=== PATIENT | male | born 1985 | race Caucasian/White ===

== ENCOUNTER 2019-11-20 18:28 | Emergency (ER) | payer BC, OTHER ==
[2019-11-20 18:34] VITALS: RESP 18
[2019-11-20] MEDS ORDERED: KETOROLAC 30 MG/ML 1 ML VIAL IM STA (18:43)
[2019-11-20 19:14] LABS: Appearance,Urine Clear (Clear); Bilirubin,Urine Negative (Negative); Blood,Urine Negative (Negative); Color,Urine Yellow; Glucose,Urine (UA) Negative (Negative); Ketones,Urine Trace (Negative); Leukocyte Esterase,Urine Negative (Negative); Nitrite,Urine Negative (Negative); PH, Urine 6.5 (5.0-8.0); Protein,Urine Negative (Negative); Specific Gravity,Urine 1.014 (1.001-1.035); Urobilinogen,Urine <2.0 mg/dL (<2.0)
--- NOTE | 2019-11-20 19:43 | ED ---
General Adult HPI - General Chief complaint: Urogenital Stated complaint: sent by [facility] [place] for US Time Seen by Provider: 11/20/19 18:35 Source: patient Mode of arrival: ambulatory Limitations: no limitations - History of Present Illness Initial comments: 34-year-old male patient presents to the emergency department today as a transfer from [facility] for further evaluation of left testicular pain. Patient states a few hours ago he started to have pain in the testicle which gradually worsened. Patient states his max pain is around an 8-9 out of 10 on the pain scale. States he is currently a 6. Patient denies any swelling. Denies any penile drainage or discharge. Denies any dysuria, hematuria, urinary frequency, urinary urgency. Denies any known injury to the testicle. Patient states he is having some vague left lower abdominal pain and low back pain. States he did take ibuprofen around 1 PM but it didn't seem to help. Denies any history of similar symptoms. He has had vasectomy in the past. Patient denies any recent rash, cough, shortness of breath, chest pain, nausea, vomiting, diarrhea, constipation, numbness, tingling, dizziness, weakness, headache, visual changes, or any other complaints. - Related Data Allergies Allergy/AdvReac Type Severity Reaction Status Date / Time No Known Allergies Allergy Verified 11/20/19 18:33 Review of Systems ROS Statement: Those systems with pertinent positive or pertinent negative responses have been documented in the HPI. ROS Other: All systems not noted in ROS Statement are negative. Past Medical History Past Medical History: No Reported History History of Any Multi-Drug Resistant Organisms: None Reported Past Surgical History: No Surgical Hx Reported Past Psychological History: No Psychological Hx Reported Smoking Status: Never smoker Past Alcohol Use History: None Reported Past Drug Use History: None Reported General Exam Limitations: no limitations General appearance: alert, in no apparent distress, other (Physical well- developed, well-nourished adult male patient in no acute distress. Vital signs upon presentation are temperature 98.3F, pulse 64, respirations 18, blood pressure 136/81, pulse ox 100% on room air) Respiratory exam: Present: normal lung sounds bilaterally. Absent: respiratory distress, wheezes, rales, rhonchi, stridor Cardiovascular Exam: Present: regular rate, normal rhythm, normal heart sounds. Absent: systolic murmur, diastolic murmur, rubs, gallop, clicks GI/Abdominal exam: Present: soft, normal bowel sounds. Absent: distended, tenderness, guarding, rebound, rigid exam: Present: normal inspection, testicular tenderness (left), other (Positive cremasteric reflex. There is not sign of henia. ). Absent: urethral discharge, scrotal swelling Neurological exam: Present: alert, oriented X3, CN II-XII intact Psychiatric exam: Present: normal affect, normal mood Skin exam: Present: warm, dry, intact, normal color. Absent: rash Course Vital Signs 11/20/19 11/20/19 18:30 21:19 Temperature 98.3 F 97.9 F Pulse Rate 64 60 Respiratory 18 18 Rate Blood Pressure 136/81 118/87 O2 Sat by Pulse 100 96 Oximetry Medical Decision Making - Medical Decision Making 34-year-old male patient presents to the emergency department today for evaluation of left testicular pain. Physical examination reveals left testicular tenderness and inguinal tenderness with no evidence of hernia. Urinalysis is negative. This was sent for culture and gonorrhea and chlamydia. Ultrasound was obtained and showed small bilateral hydrocele and a small calcification of doubtful significance. I did discuss findings and results with the patient. He is instructed to rest and take anti-inflammatory pain medication while awaiting culture results was instructed to follow-up with urologist for further evaluation as soon as possible. Return parameters were discussed in detail. He verbalizes understanding and agrees with this plan. - Lab Data Lab Results 11/20/19 Range/Units 18:57 Urine Color Yellow Urine Appearance Clear (Clear) Urine pH 6.5 (5.0-8.0) Ur Specific [place] 1.014 (1.001-1.035) Urine Protein Negative (Negative) Urine Glucose (UA) Negative (Negative) Urine Ketones Trace H (Negative) Urine Blood Negative (Negative) Urine Nitrite Negative (Negative) Urine Bilirubin Negative (Negative) Urine Urobilinogen <2.0 (<2.0) mg/dL Ur Leukocyte Esterase Negative (Negative) - Radiology Data Radiology results: report reviewed, image reviewed Ultrasound of the scrotum with Doppler was obtained. Report was reviewed in its entirety. Impression by Dr. Serrato shows no testicular torsion or mass. Small hydroceles. There is small calcification adjacent to the left testicle doubtful significance. Disposition Clinical Impression: Testicular pain, left, Bilateral hydrocele Disposition: HOME SELF-CARE Condition: Good Instructions (If sedation given, give patient instructions): Hydrocele (ED), Testicle Pain (ED) Additional Instructions: Rest. Take medication for pain as directed. Follow-up with the primary care physician for recheck in 1-2 days. Follow-up with urology as soon as possible. Return to the emergency department immediately for any new, worsening, or concerning symptoms. Is patient prescribed a controlled substance at d/c from ED?: No Referrals: Luke Mcgee MD [Primary Care Provider] - 1-2 days Lisandro Reyes MD [STAFF PHYSICIAN] - 1-2 days Time of Disposition: 21:08
--- NOTE | 2019-11-20 20:29 | US ---
EXAMINATION TYPE: US scrotum with doppler. Grayscale and color Doppler Duplex imaging performed of t swetha scrotum. DATE OF EXAM: 11/20/2019 COMPARISON: NONE CLINICAL HISTORY: Left testicular pain. Left testicular pain and swelling x 1 day. Hx vasectomy 10 mo nths ago. EXAM MEASUREMENTS: TESTICLES: Right Testicle: 4.5 x 3.1 x 2.6 cm Left Testicle: 4.3 x 3.1 x 2.6 cm EPIDIDYMIS HEAD: Right Epididymis: 1.7 x 1.6 x 0.8 cm. Complex area seen: 0.3 x 0.3 x 0.3 cm. Left Epididymis: 1.8 x 1.6 x 0.9 cm. Doppler performed to assess for testicular vascularity; bilateral color flow and waveforms are seen. Presence of hydroceles: Right: 2.1 x 1.7 x 0.8 cm. Left: 2.3 x 1.9 x 1.1 cm. Presence of varicoceles: Vessels on left measure up to 2.4 mm. There appears to be a hyperechoic area with posterior shadowing adjacent to the left testicle mediall y: 0.8 x 0.7 x 0.3 cm. IMPRESSION: No testicular torsion or mass. Small hydroceles. There is small calcification adjacent to the left te sticle doubtful significance.
[2019-11-20] MEDS ORDERED: ACET/COD 300 MG/30 MG STARTER PACK 6 TAB BTL PO STA (21:09)
[2019-11-20 21:20] VITALS: BP 118/87; PULSE 60; TEMP 97.9
[2019-11-21 14:34] LABS: C. trachomatis,PCR Negative (Neg,Equiv); Chlamydia trachomatis Source Urine; N. gonorrhoeae,PCR Negative (Neg,Equiv); Neisseria Source Urine
== END 2019-11-20 21:20 | disposition home or self-care (01) ==
LOC: EC 18:28
DX: N50.812 Left testicular pain (principal); N43.3 Hydrocele, unspecified
CPT/HCPCS: 81003; 87491; 87591; 93975; 76870; 99284; J1885

== ENCOUNTER 2020-01-28 12:10 | Emergency (ER) | payer BC ==
[2020-01-28 12:51] VITALS: BP 120/80; PULSE 57; RESP 18; TEMP 98.3
[2020-01-28] MEDS ORDERED: SODIUM CHLORIDE 0.9% 1,000 ML IV STA (13:45)
[2020-01-28] MEDS ORDERED: KETOROLAC 30 MG/ML 1 ML VIAL IVP STA (13:45)
[2020-01-28] MEDS ORDERED: ONDANSETRON ODT 8 MG TAB.RAPDIS PO STA (13:45)
--- NOTE | 2020-01-28 13:46 | ED ---
Abdominal Pain HPI - General Chief Complaint: Abdominal Pain Stated Complaint: abdominal pain Time Seen by Provider: 01/28/20 13:35 Source: patient Mode of arrival: ambulatory Limitations: no limitations - History of Present Illness Initial Comments: Patient is a 34-year-old male presenting to the emergency department with a chief complaint of abdominal pain. States the incident occurred about 2 weeks ago when his son jumped on his stomach, particularly on the left lower quadrant region is gradual develop increased pain. States the pain is exacerbated with movement. States it feels like his left lower quadrant region is swollen. Denies any nausea or vomiting does report decreased appetite. Denies any penile or testicular pain or swelling. Denies taking medication to alleviate the symptoms. Denies hematuria, hematochezia or melena. Denies any urinary symptoms.no history of kidney stones or abdominal surgeries. - Related Data Allergies Allergy/AdvReac Type Severity Reaction Status Date / Time No Known Allergies Allergy Verified 01/28/20 12:51 Review of Systems ROS Statement: Those systems with pertinent positive or pertinent negative responses have been documented in the HPI. ROS Other: All systems not noted in ROS Statement are negative. Past Medical History Past Medical History: No Reported History History of Any Multi-Drug Resistant Organisms: None Reported Past Surgical History: No Surgical Hx Reported Past Psychological History: No Psychological Hx Reported Smoking Status: Never smoker Past Alcohol Use History: None Reported Past Drug Use History: None Reported General Exam Limitations: no limitations General appearance: alert, in no apparent distress Head exam: Present: atraumatic, normocephalic, normal inspection Eye exam: Present: normal appearance, PERRL, EOMI Pupils: Present: normal accommodation ENT exam: Present: normal exam, normal oropharynx, mucous membranes moist Neck exam: Present: normal inspection, full ROM Respiratory exam: Present: normal lung sounds bilaterally Cardiovascular Exam: Present: regular rate, normal rhythm, normal heart sounds GI/Abdominal exam: Present: soft, tenderness (Left lower quadrant, left flank.), normal bowel sounds. Absent: distended, guarding, rebound, rigid Extremities exam: Present: normal inspection, full ROM Back exam: Present: normal inspection, full ROM Neurological exam: Present: alert, oriented X3 Psychiatric exam: Present: normal affect, normal mood Skin exam: Present: warm, dry, intact, normal color Course Vital Signs 01/28/20 12:50 Temperature 98.3 F Pulse Rate 57 L Respiratory 18 Rate Blood Pressure 120/80 O2 Sat by Pulse 99 Oximetry Medical Decision Making - Medical Decision Making Patient is 34-year-old male presenting to the emergency department with a chief complaint of abdominal pain on exam patient does have left lower quadrant left flank pain. With some left CVA tenderness. His son did jump on his stomach about 2 weeks ago and now has developed increased pain in the region. CBC and CMP are unremarkable. UA shows small ketones. Patient does report decreased fluid and water intake. Patient was given fluids and antiemetics in the ED. CT of abdomen and pelvis reveals partially sacralized left L5 segment this asymmetry may cause chronic left lower quadrant and pelvic pain. This could result for the patient's increased discomfort in region. Patient advised alternate between Tylenol and Motrin for pain control. He is advised to rest. He was advised to follow with primary care. Return parameters were thoroughly discussed with patient is understanding and agreeable. Case discussed with physician. - Lab Data Result diagrams: 01/28/20 14:17 01/28/20 14:17 Lab Results 01/28/20 01/28/20 01/28/20 Range/Units 14:04 14:17 14:17 WBC 5.3 (3.8-10.6) k/uL RBC 5.19 (4.30-5.90) m/uL Hgb 15.8 (13.0-17.5) gm/dL Hct 48.6 (39.0-53.0) % MCV 93.7 (80.0-100.0) fL MCH 30.5 (25.0-35.0) pg MCHC 32.6 (31.0-37.0) g/dL RDW 12.1 (11.5-15.5) % Plt Count 215 (150-450) k/uL Neutrophils % 65 % Lymphocytes % 23 % Monocytes % 7 % Eosinophils % 2 % Basophils % 1 % Neutrophils # 3.4 (1.3-7.7) k/uL Lymphocytes # 1.2 (1.0-4.8) k/uL Monocytes # 0.4 (0-1.0) k/uL Eosinophils # 0.1 (0-0.7) k/uL Basophils # 0.0 (0-0.2) k/uL Sodium 137 (137-145) mmol/L Potassium 4.6 (3.5-5.1) mmol/L Chloride 104 (98-107) mmol/L Carbon Dioxide 25 (22-30) mmol/L Anion Gap 8 mmol/L BUN 10 (9-20) mg/dL Creatinine 0.83 (0.66-1.25) mg/dL Est GFR (CKD-EPI)AfAm >90 (>60 ml/min/1.73 sqM) Est GFR (CKD-EPI)NonAf >90 (>60 ml/min/1.73 sqM) Glucose 89 (74-99) mg/dL Calcium 9.5 (8.4-10.2) mg/dL Total Bilirubin 1.0 (0.2-1.3) mg/dL AST 58 (17-59) U/L ALT 58 H (4-49) U/L Alkaline Phosphatase 48 (38-126) U/L Total Protein 7.3 (6.3-8.2) g/dL Albumin 4.6 (3.5-5.0) g/dL Lipase 107 (23-300) U/L Urine Color Yellow Urine Appearance Clear (Clear) Urine pH 7.0 (5.0-8.0) Ur Specific [place] 1.010 (1.001-1.035) Urine Protein Negative (Negative) Urine Glucose (UA) Negative (Negative) Urine Ketones 1+ H (Negative) Urine Blood Negative (Negative) Urine Nitrite Negative (Negative) Urine Bilirubin Negative (Negative) Urine Urobilinogen <2.0 (<2.0) mg/dL Ur Leukocyte Esterase Negative (Negative) Disposition Clinical Impression: Abdominal wall pain Disposition: HOME SELF-CARE Condition: Stable Instructions (If sedation given, give patient instructions): Abdominal Pain (ED) Additional Instructions: Alternate between Tylenol and Motrin for pain control. Return to emergency department if symptoms worsen. Is patient prescribed a controlled substance at d/c from ED?: No Referrals: Luke Mcgee MD [Primary Care Provider] - 1-2 days Time of Disposition: 15:13
[2020-01-28] MEDS ORDERED: ONDANSETRON 4 MG/2 ML VIAL IVP STA (14:01)
[2020-01-28 14:39] LABS: Basophils % (A) 1 %; Eosinophils # (A) 0.1 k/uL (0-0.7); Eosinophils % (A) 2 %; HCT 48.6 % (39.0-53.0); HGB 15.8 gm/dL (13.0-17.5); Lymphocytes # (A) 1.2 k/uL (1.0-4.8); Lymphocytes % (A) 23 %; MCH 30.5 pg (25.0-35.0); MCHC 32.6 g/dL (31.0-37.0); MCV 93.7 fL (80.0-100.0); Mean Platelet Volume 6.9; Monocytes # (A) 0.4 k/uL (0-1.0); Monocytes % (A) 7 %; Neutrophils # (A) 3.4 k/uL (1.3-7.7); Neutrophils % (A) 65 %; Platelet Count 215 k/uL (150-450); RBC 5.19 m/uL (4.30-5.90); RDW 12.1 % (11.5-15.5); WBC 5.3 k/uL (3.8-10.6)
[2020-01-28 14:44] LABS: Appearance,Urine Clear (Clear); Bilirubin,Urine Negative (Negative); Blood,Urine Negative (Negative); Color,Urine Yellow; Glucose,Urine (UA) Negative (Negative); Ketones,Urine 1+ (Negative); Leukocyte Esterase,Urine Negative (Negative); Nitrite,Urine Negative (Negative); Protein,Urine Negative (Negative); Urobilinogen,Urine <2.0 mg/dL (<2.0)
--- NOTE | 2020-01-28 14:53 | CT ---
EXAMINATION TYPE: CT abdomen pelvis w con DATE OF EXAM: 01/28/2020 COMPARISON: None. HISTORY: Left lower quadrant pain. CT DLP: 1051.2 mGycm, Automated Exposure Control for Dose Reduction was Utilized. CONTRAST: CT scan of the abdomen and pelvis is performed without oral by with IV Contrast, patient injected wit h 100 mL of Isovue 300. FINDINGS: LUNG BASES: No significant abnormality is appreciated. LIVER/GB: No significant abnormality is appreciated. PANCREAS: No significant abnormality is seen. SPLEEN: No significant abnormality is seen. ADRENALS: No significant abnormality is seen. KIDNEYS: Symmetric right medullary uptake and excretion without concerning solid or cystic renal mass or hydronephrosis seen bilaterally. [id number] concentric wall thickening in the poorly disten ded bladder, correlate clinically to exclude acute cystitis. BOWEL: Suboptimal evaluation without enteric contrast. Stomach shows less than optimal distention. No suspicious small or large bowel dilatation. Normal-appearing appendix inferiorly from cecum right up per pelvis seen best sagittal image 40. PROSTATE/SEMINAL VESICLES: No gross abnormality seen. LYMPH NODES: No greater than 1cm abdominal or pelvic lymph nodes are appreciated. OSSEOUS STRUCTURES: Partially sacralized left L5 segment. Moderate disc space narrowing lumbosacral j unction. OTHER: No significant additional abnormality is seen. IMPRESSION: Partially sacralized left L5 segment, this asymmetric assimilation may cause chronic left lower quadrant and pelvic pain. Possible acute cystitis, correlate clinically. No acute finding othe rwise evident.
[2020-01-28 15:00] LABS: ALT 58 U/L (4-49); AST 58 U/L (17-59); African American GFR (CKD) >90 (>60 ml/min/1.73 sqM); Albumin 4.6 g/dL (3.5-5.0); Alkaline Phosphatase 48 U/L (38-126); Anion Gap 8 mmol/L; Blood Urea Nitrogen 10 mg/dL (9-20); Calcium 9.5 mg/dL (8.4-10.2); Carbon Dioxide 25 mmol/L (22-30); Chloride 104 mmol/L (98-107); Glucose 89 mg/dL (74-99); Non-African American GFR(CKD) >90 (>60 ml/min/1.73 sqM); Potassium 4.6 mmol/L (3.5-5.1); Sodium 137 mmol/L (137-145); Total Protein 7.3 g/dL (6.3-8.2)
== END 2020-01-28 15:55 | disposition home or self-care (01) ==
LOC: EC 12:10
DX: R10.9 Unspecified abdominal pain (principal)
CPT/HCPCS: 36415; 80053; 83690; 85025; 81003; 74177; 99284; 96374; 96375; 96361 ×2; J2405; J1885; Q9967